=== PATIENT | male | born 1995 | race Caucasian/White ===

== ENCOUNTER 2017-09-26 22:43 | Emergency (ER) | payer OTHER ==
[2017-09-26 23:03] VITALS: BP 131/80
--- NOTE | 2017-09-26 23:07 | Emergency Department Report ---
HPI - General Time Seen by Provider: 09/26/17 22:58 - HPI HPI: 22-year-old male presents to the emergency department by EMS on a backboard and in a c-collar after he fell about 6 or 7 feet from the top of a tractor-trailer onto the floor of the trailer. He denies hitting his head or any loss of consciousness. He went on his back and his left elbow. He says that the bleeding briefly got knocked out of him. He says he already has a history of orthopedic surgery to the left upper extremity but has left elbow pain. He denies any numbness or paresthesias but does have some abrasions. He also complains of some pain to the lower back. He did not take anything and was not given anything for her symptoms prior to presentation. ED Past Medical Hx - Past Medical History Previous Medical History?: No - Surgical History Past Surgical History?: Yes Additional Surgical History: left arm surgery ( plates and rods) - Social History Smoking Status: Never Smoker Substance Use Type: None - Medications Home Medications: Home Medications Medication Instructions Recorded Confirmed Last Taken Type HYDROcodone/APAP 5-325 [[place] 1 each PO Q6HR PRN #16 tablet 09/27/17 Unknown Rx 5/325] ED Review of Systems ROS: Stated complaint: FALL/BACK PAIN Other details as noted in HPI Comment: All other systems reviewed and negative Constitutional: denies: chills, fever Eyes: denies: eye pain, eye discharge, vision change ENT: denies: ear pain, throat pain Respiratory: denies: cough, shortness of breath, wheezing Cardiovascular: denies: chest pain, palpitations Gastrointestinal: denies: abdominal pain, nausea, diarrhea Genitourinary: denies: urgency, dysuria Musculoskeletal: back pain, arthralgia Skin: other (abrasions). denies: rash Neurological: denies: headache, weakness, paresthesias Physical Exam - Physical Exam Vital Signs: Vital Signs 09/26/17 09/26/17 22:51 23:02 Temperature 99.0 F 98.1 F Pulse Rate 104 H 85 Respiratory 20 18 Rate Blood Pressure 131/80 Blood Pressure 131/80 [Left] O2 Sat by Pulse 98 99 Oximetry Physical Exam: GENERAL: The patient is well-developed well-nourished. HENT: Normocephalic. Atraumatic. Patient has moist mucous membranes. EYES: Extraocular motions are intact. Pupils equal reactive to light bilaterally. NECK: Supple. Trachea is midline. CHEST/LUNGS: Clear to auscultation. There is no respiratory distress noted. HEART/CARDIOVASCULAR: Regular. There is no tachycardia. There is no murmur. ABDOMEN: Abdomen is soft, nontender. No guarding. Patient has normal bowel sounds. There is no abdominal distention. SKIN: Skin is warm and dry. NEURO: The patient is awake, alert, and oriented. The patient is cooperative. The patient has no focal neurologic deficits. The patient has normal speech. Cranial nerves II through XII grossly intact. MUSCULOSKELETAL: There is tenderness to palpation to the circumferential left elbow. Decreased range of motion of the left elbow secondary to pain. Refill less than 2 seconds. Radial pulse +2 over 4. There is no limitation range of motion. BACK: No midline thoracic tenderness to palpation. There is both midline and bilateral paraspinal lumbar tenderness to palpation but no step-off or deformity. ED Course Vital Signs 09/26/17 09/26/17 22:51 23:02 Temperature 99.0 F 98.1 F Pulse Rate 104 H 85 Respiratory 20 18 Rate Blood Pressure 131/80 Blood Pressure 131/80 [Left] O2 Sat by Pulse 98 99 Oximetry ED Medical Decision Making - Radiology Data Radiology results: report reviewed, image reviewed interpreted by me: Chest x-ray does not show any acute process. There are no pleural effusions, obvious pneumonia and there is no pneumothorax. X-ray of the right femur does not show any fracture, dislocation or any acute process. X-ray of the lumbosacral spine does not show any fracture, dislocation, subluxation or any acute process. X-ray of the left elbow shows a impacted proximal radial neck fracture. - Medical Decision Making Patient presents with low back pain, right hamstring pain and left elbow pain after falling onto the floor of a trailer from about 6 or 7 feet up. There is some mild swelling to the left elbow where he also has some abrasions. He does not have any headache or any neck pain and was cleared from the c-collar. X- rays were done of the left elbow, right femur, lumbosacral spine and chest. He has a impacted left proximal radial neck fracture. He was placed in a splint and sling and was given some referrals for orthopedist. Prior to discharge, the patient was seen ambulatory without any instability. The x-ray of the low back did not show any fracture, subluxation or any acute process. He understands that if he continues to have some discomfort he may need an MRI and was also given a referral for a neurosurgeon. He does not have any numbness or paresthesias, problems with bowel or bladder or any neurological deficits and he has low suspicion for any of the emergent back condition such as cord compression syndrome or cauda equina. He will return to the ER with any worsening of his symptoms or any acute distress. - Differential Diagnosis fracture, contusion, sprain, strain, dislocation Critical Care Time: No Critical care attestation.: If time is entered above; I have spent that time in minutes in the direct care of this critically ill patient, excluding procedure time. ED Disposition Clinical Impression: Right leg pain Fall Qualifiers: Encounter type: initial encounter Qualified Code(s): W19.XXXA - Unspecified fall, initial encounter Fracture, radius, proximal Qualifiers: Encounter type: initial encounter Fracture type: closed Fracture morphology: unspecified fracture morphology Laterality: left Qualified Code(s): S52.102A - Unspecified fracture of upper end of left radius, initial encounter for closed fracture Low back pain Qualifiers: Chronicity: acute Back pain laterality: bilateral Sciatica presence: without sciatica Qualified Code(s): M54.5 - Low back pain Disposition: DC-01 TO HOME OR SELFCARE Is pt being admited?: No Condition: Stable Instructions: Elbow Fracture in Adults (ED), Acute Low Back Pain (ED), Arthralgia (ED), Fall Prevention (ED) Additional Instructions: Please follow up with a primary care physician. Please follow up with an orthopedist regarding your left elbow fracture. Keep the splint on until follow -up with the orthopedist. I have given you multiple referrals for local orthopedic groups. I have also given you a referral for a local neurosurgeon, Dr. Valerio, in case you need to follow up regarding your back pain. Return to the emergency Department with any worsening of your symptoms or any acute distress. You have been prescribed a medication that is sedating and therefore should not be taken prior to driving, working, and responsible for children and in no way should be mixed with alcohol of any quantity. Prescriptions: HYDROcodone/APAP 5-325 [[place] 5/325] 1 each PO Q6HR PRN #16 tablet PRN Reason: Pain Referrals: SUMI CANO MD [Staff Physician] - 3-5 Days DEX VALERIO MD [Staff Physician] - 3-5 Days [facility] [Provider Group] - 3-5 Days Time of Disposition: 01:27
--- NOTE | 2017-09-26 23:52 | XRay Report ---
FINAL REPORT PROCEDURE: Right femur. TECHNIQUE: AP and lateral views. HISTORY: Trauma, leg pain. COMPARISON: No prior studies are available for comparison. FINDINGS: The bones appear intact without fracture or dislocation. The joint spaces appear normal. The soft tissues are unremarkable. IMPRESSION: Normal study.
--- NOTE | 2017-09-26 23:52 | XRay Report ---
FINAL REPORT PROCEDURE: Chest. TECHNIQUE: Chest radiograph anteroposterior view. CPT 54214 HISTORY: Chest trauma, pain. COMPARISON: No prior studies are available for comparison. FINDINGS: The heart and mediastinum appear normal. The lungs are clear and well expanded. There are no pleural effusions. The soft tissues and regional skeleton are unremarkable. IMPRESSION: Normal study.
--- NOTE | 2017-09-27 00:31 | XRay Report ---
FINAL REPORT EXAM: XR ELBOW 2V LT HISTORY: Trauma elbow pain TECHNIQUE: Three views of the right elbow: AP, oblique and lateral projections. PRIORS: None. FINDINGS: Plate screw fixation of the proximal/mid radius and ulnar diaphyses are noted. Best appreciated on the lateral projection, there is abnormal angulation at the radial neck consistent with a mildly impacted fracture. Distal humerus intact. Elbow joint effusion is present. IMPRESSION: 1. Mildly impacted radial neck fracture. There is no extension to the radial head articular surface. Concomitant joint effusion. 2. Postsurgical changes from plate and screw fixation of the radial and ulnar diaphyses, no evidence of hardware complication.
[2017-09-27] MEDS ORDERED: NORCO 5/325 PO ONE (00:33)
[2017-09-27] MEDS ORDERED: TORADOL IM ONE (00:33)
--- NOTE | 2017-09-27 00:33 | XRay Report ---
FINAL REPORT EXAM: XR SPINE LUMBOSACRAL 2-3V HISTORY: Back pain TECHNIQUE: Three views of the lumbar spine: AP, lateral and coned-down lateral views of the lumbosacral junction. PRIORS: None. FINDINGS: There is no radiographic evidence of acute fracture or subluxation. No significant degenerative changes. Osseous mineralization is normal. IMPRESSION: No acute osseous abnormalities.
== END 2017-09-27 02:27 | disposition home or self-care (01) ==
LOC: ED 22:43
DX: S52.102A Unspecified fracture of upper end of left radius, initial encounter for closed fracture (principal); M54.5 Low back pain; M79.604 Pain in right leg; W17.89XA Other fall from one level to another, initial encounter; Y93.89 Activity, other specified; Y92.89 Other specified places as the place of occurrence of the external cause; Y99.8 Other external cause status
CPT/HCPCS: 29105; 71045; 72100; 73070; 73552; 96372; 99283; J1885